=== PATIENT | female | born 1975 | race Caucasian/White ===

== ENCOUNTER → 2017-05-10 | Outpatient (CLI) | payer BC ==
[~2017-05-10] MED LIST: ALPR.25 PO; BUPR150ER PO; VALA500 PO
== END | disposition home or self-care (01) ==
LOC: LAB EV 12:57
DX: N39.0 Urinary tract infection, site not specified (principal)
CPT/HCPCS: 87086

== ENCOUNTER → 2018-01-03 | Outpatient (CLI) | payer BC | END | disposition home or self-care (01) | LOC: LAB EV 07:45 → EDSTATUS 12-19 15:40 → LAB FUT 12-19 15:40 | DX: R10.84 Generalized abdominal pain (principal); R10.30 Lower abdominal pain, unspecified | CPT/HCPCS: 87338 ==

== ENCOUNTER 2019-12-05 06:11 | Day surgery (SDC) | payer BC ==
[~2019-12-05] VITALS: Ht 175.3 cm; Wt 100.9 kg
[~2019-12-05 06:11] MED LIST changes: +Abilify2 MG PO; +Ativan1 MG PO; +CENTRUM SILVER1 EAC2 PO; +DOCU100 PO; +ESCI10 PO; +Frova2.5 MG PO; +GABA100 PO; +HYOS.125 PO; +IBUP800 PO; +LEVONOR-ETH ES1 EAC5 PO; +METR500 PO; +MOME.1TO TOP; +PROP80ER PO; +TRIA15CR3 TOP
--- NOTE | 2019-12-05 08:40 | NUR ---
"DAY SURGERY RN | PATIENT TOLERATING PO FLUIDS."
--- NOTE | 2019-12-05 08:50 | NUR ---
"DAY SURGERY RN | REPORT TO EMEKA MILLER PATIENT TOLERATING PO FLUIDS AND FOOD. DENIES PAIN AND NAUSEA. SITE C/D/I."
--- NOTE | 2019-12-05 09:46 | NUR ---
AARON DRAIN TEACHING DONE, VERBALIZED UNDERSTANDING. PT INSTRUCTIONS GIVEN. DRAINED 20CC RED FLUID, RECORDED ON PT RECORD. NEW RX FROM DR. PARKS FOR PAIN MEDS, GIVEN TO PT. DENIES PAIN AT THIS TIME. VSS. AARON REINFORCED WITH TAPE, SUPPLIES GIVEN FOR HOME CARE. Discharge instructions reviewed with patient. Patient verbalizes understanding. Copy given to patient to take home. Discharged via wheelchair to private car for ride home.
== END 2019-12-05 23:23 | disposition home or self-care (01) ==
LOC: ORSCMMR 06:11 → ORD 07:30 → ORSCMMR 07:30
PROVIDERS: Surgery
PROC: 0JBD0ZZ Excision of Right Upper Arm Subcutaneous Tissue and Fascia, Open Approach (ICD-10-PCS; principal; 2019-12-05 07:30)
DX: D17.39 Benign lipomatous neoplasm of skin and subcutaneous tissue of other sites (principal); F41.8 Other specified anxiety disorders; N18.3 Chronic kidney disease, stage 3 (moderate); E66.9 Obesity, unspecified; Z68.33 Body mass index [BMI] 33.0-33.9, adult; Z79.899 Other long term (current) drug therapy
CPT/HCPCS: 88305; J0690; J1100; J2250; J2405; J2704; J3010; J7120

== ENCOUNTER → 2020-02-11 | Outpatient (CLI) | payer BC ==
[~2020-02-11] MED LIST changes: +ABILIFY MYCITE5 M1 PO; +ACET325 PO; +ACET500 PO; +AMOCLA500 PO; +BENMENLOZ PO; +BUPROPION HCL200 M1 PO; +ESCI20 PO; +ONDA4ODT MM; +PROC5 PO; +Potassium Chlo20 ME1
== END | disposition home or self-care (01) ==
LOC: LAB SHORT 11:28 → LAB EV 11:28
DX: N39.0 Urinary tract infection, site not specified (principal)
CPT/HCPCS: 87077; 87086; 87186

== ENCOUNTER 2020-02-29 17:39 | Inpatient (IN) | payer BC ==
[~2020-02-29] VITALS: Ht 175.3 cm; Wt 102.2 kg
[~2020-02-29 17:39] MED LIST changes: -ABILIFY MYCITE5 M1 PO; -ACET325 PO; -ACET500 PO; -AMOCLA500 PO; -BENMENLOZ PO; -BUPROPION HCL200 M1 PO; -ESCI20 PO; -ONDA4ODT MM; -PROC5 PO; -Potassium Chlo20 ME1
[2020-02-29 18:53] LABS: Hematocrit 31.3 % (33.0-51.0); Hemoglobin 10.8 g/dL (11.5-16.0); Mean Corpuscular HGB Conc 34.5 g/dL (31.5-36.5); Mean Corpuscular Volume 90 fL (80-100); Mean Platelet Volume 10.2 fL (9.1-12.4); RDW Coefficient Variation 10.9 % (11.7-14.2); RDW Standard Deviation 35.8 fL (35.1-46.3); Red Blood Cell Count 3.48 M/mm3 (3.80-5.20)
[2020-02-29 19:07] LABS: International Normalized Ratio 0.96; Prothrombin Time Results 10.3 Sec (9.7-11.5)
[2020-02-29 19:13] LABS: Alanine Aminotransfer (ALT/SGP 247 U/L (12-78); Albumin, Blood 3.3 g/dL (3.4-5.0); Albumin/Globulin Ratio 0.7 (0.8-1.8); Alk Phos 84 U/L (50-136); Anion Gap 5 mmol/L (6-16); Aspartate Aminotrans (AST/SGOT 38 U/L (12-37); Bilirubin, Total 1.4 mg/dL (0.1-1.0); Blood Urea Nitrogen 13 mg/dL (8-24); Bun/Creatinine Ratio 12.6 (12.0-20.0); CO2, Blood 26 mmol/L (21-32); Chloride, Blood 101 mmol/L (98-108); Creatinine, Blood 1.03 mg/dL (0.40-1.00); Globulin, Blood 4.5 g/dL (2.2-4.0); Glomerular Filtration Rate >60 (60-); Glucose, Blood 120 mg/dL (70-99); Sodium, Blood 132 mmol/L (136-145); Total Protein, Blood 7.8 g/dL (6.4-8.2)
[2020-02-29 19:14] LABS: Platelet Count 39 K/mm3 (150-400); White Blood Cell Count 0.23 K/mm3 (4.00-11.30)
[2020-02-29] MEDS ORDERED: ESCI20 PO ×2 (19:31)
[2020-02-29] MEDS ORDERED: ABILIFY MYCITE5 M1 PO ×2 (19:31)
[2020-02-29] MEDS ORDERED: Potassium Chlo20 ME1 ×2 (19:33)
[2020-02-29] MEDS ORDERED: PROC5 PO ×2 (19:34)
[2020-02-29] MEDS ORDERED: BUPROPION HCL200 M1 PO ×2 (19:35)
[2020-02-29 19:41] LABS: BASOPHILS PERCENT MAN 0 % (0-2); EOSINOPHILS ABSOLUTE MAN 0.01 K/mm3 (0.00-0.68); EOSINOPHILS PERCENT MAN 8 % (0-6); LYMPHOCYTES % ATYPICAL MANUAL 4 % (0-0); LYMPHOCYTES ABSOLUTE MAN 0.18 K/mm3 (0.84-5.20); LYMPHOCYTES PERCENT MAN 76 % (21-46); MONOCYTES ABSOLUTE MAN 0.02 K/mm3 (0.16-1.47); MONOCYTES PERCENT MAN 12 % (4-13); TOTAL CELLS COUNTED 25
[2020-02-29 22:33] LABS: Source, Urine Clean Catch
[2020-02-29 22:36] LABS: Bilirubin, Urine Neg (Neg); Blood, Urine 2+ (Neg); Glucose Qualitative, Urine Neg (Neg); Ketones, Urine 1+ (Neg); Leukocyte Esterase, Urine Neg (Neg); Nitrite, Urine Neg (Neg); Protein, Urine 1+ (Neg); Specific Gravity, Urine 1.015 (1.003-1.022); Urobilinogen, Urine 1+ (Normal)
[2020-02-29 22:37] LABS: Appearance, Urine Clear (Clear); Color, Urine Yellow (P-Yellow)
[2020-02-29 22:53] LABS: Bacteria Rare /hpf; Mucus Light (0-Heavy); Red Blood Cells, Urine 0-2 /hpf (0-2); Squamous Epithelial Cells Few /hpf (Few); White Blood Cells, Urine Not Seen /hpf (0-5)
[2020-02-29 23:43] LABS: Adenovirus Not Detected (NOT DETECT); Bordetella pertussis Not Detected (NOT DETECT); Chlamydophila pneumoniae Not Detected (NOT DETECT); Coronavirus 229E Not Detected (NOT DETECT); Coronavirus HKU1 Not Detected (NOT DETECT); Coronavirus NL63 Not Detected (NOT DETECT); Coronavirus OC43 Not Detected (NOT DETECT); Human Metapneumovirus Not Detected (NOT DETECT); Human Rhinovirus/Enterovirus Not Detected (NOT DETECT); Influenza A/2009-H1 Not Detected (NOT DETECT); Influenza A/H1 Not Detected (NOT DETECT); Influenza A/H3 Not Detected (NOT DETECT); Influenza B Not Detected (NOT DETECT); Mycoplasma pneumoniae Not Detected (NOT DETECT); Parainfluenza Virus 1 Not Detected (NOT DETECT); Parainfluenza Virus 2 Not Detected (NOT DETECT); Parainfluenza Virus 3 Not Detected (NOT DETECT); Parainfluenza Virus 4 Not Detected (NOT DETECT); Respiratory Syncytial Virus Not Detected (NOT DETECT); SARS-Cov-2 (COVID-19), BioFire Not Detected (NOT DETECT)
[2020-03-01 05:57] LABS: BASOPHILS PERCENT AUTO 0 % (0-2); EOSINOPHILS ABSOLUTE AUTO 0.01 K/mm3 (0.00-0.68); EOSINOPHILS PERCENT AUTO 5 % (0-6); Hematocrit 25.4 % (33.0-51.0); IMMATURE GRAN PERCENT AUTO 0 % (0-1); LYMPHOCYTES ABSOLUTE AUTO 0.18 K/mm3 (0.84-5.20); LYMPHOCYTES PERCENT AUTO 82 % (21-46); MONOCYTES ABSOLUTE AUTO 0.02 K/mm3 (0.16-1.47); MONOCYTES PERCENT AUTO 9 % (4-13); Mean Corpuscular HGB 31.7 pg (26.0-34.0); Mean Corpuscular HGB Conc 35.4 g/dL (31.5-36.5); Mean Corpuscular Volume 89 fL (80-100); Mean Platelet Volume 9.7 fL (9.1-12.4); NEUTROPHILS ABSOLUTE AUTO 0.01 K/mm3 (1.96-9.15); NEUTROPHILS PERCENT AUTO 5 % (41-73); RDW Standard Deviation 36.3 fL (35.1-46.3); Red Blood Cell Count 2.84 M/mm3 (3.80-5.20)
[2020-03-01 05:58] LABS: Platelet Count 25 K/mm3 (150-400); White Blood Cell Count 0.22 K/mm3 (4.00-11.30)
[2020-03-01 06:16] LABS: Alanine Aminotransfer (ALT/SGP 170 U/L (12-78); Albumin, Blood 2.6 g/dL (3.4-5.0); Albumin/Globulin Ratio 0.7 (0.8-1.8); Alk Phos 73 U/L (50-136); Anion Gap 5 mmol/L (6-16); Aspartate Aminotrans (AST/SGOT 21 U/L (12-37); Bilirubin, Total 0.9 mg/dL (0.1-1.0); Blood Urea Nitrogen 9 mg/dL (8-24); Bun/Creatinine Ratio 10.9 (12.0-20.0); CO2, Blood 25 mmol/L (21-32); Calcium, Blood 8.3 mg/dL (8.5-10.1); Chloride, Blood 108 mmol/L (98-108); Creatinine, Blood 0.83 mg/dL (0.40-1.00); Globulin, Blood 3.9 g/dL (2.2-4.0); Glomerular Filtration Rate >60 (60-); Glucose, Blood 117 mg/dL (70-99); Potassium, Blood 3.5 mmol/L (3.5-5.5); Sodium, Blood 138 mmol/L (136-145); Total Protein, Blood 6.5 g/dL (6.4-8.2)
[2020-03-01 06:39] LABS: BASOPHILS PERCENT MAN 4 % (0-2); EOSINOPHILS PERCENT MAN 4 % (0-6); LYMPHOCYTES ABSOLUTE MAN 0.16 K/mm3 (0.84-5.20); LYMPHOCYTES PERCENT MAN 76 % (21-46); MONOCYTES ABSOLUTE MAN 0.03 K/mm3 (0.16-1.47); MONOCYTES PERCENT MAN 16 % (4-13); TOTAL CELLS COUNTED 25
--- NOTE | 2020-03-01 12:31 | NUR ---
Supportive Visit this afternoon. Pt resting in bed upon arrival. Pt reports mild discomfort from sore throat. Pt denies dyspnea and nausea at this time. Dr Perrin in to examine Pt. Discussed Pt's sore throat with Dr Perrin. Continued conversation after Dr Perrin's examination. Encouraged Pt discuss concerns with Pt reporting no concerns at this time. Pt reports adequate support at home during her treatments. Placed order for Cepacol Lozanges per V/O from Dr Perrin. Spoke with Bedside PAUL Webb and discussed case. Palliative Care will remain available if called upon.
--- NOTE | 2020-03-01 16:07 | NUR ---
SHIFT SUMMARY NEW ER ADMIT THIS SHIFT WITH NEUTROPENIA R/T CHEMOTHERAPY D/T HX OF LIPOSARCOMA. PT ALERT AND ORIENTED AND PLEASANT. PT DENIES PAIN TO HER RIGHT SHOULDER WHERE HER MASS IS. PT WAS FEBRILE UPON ARRIAL TO UNIT. TYLENOL GIVEN PER ORDERS AND PT HAS BEEN AFEBRILE SINCE. IV ABX PER ORDERS. PT REPORTS FEELING WEAK, BUT OTHERWISE IS INDEP TO BRP AND VOIDING WITHOUT DIFFICULTY. CHADWICK REG DIET. PT WITH COMPLAINT OF A SORE THROAT--LOZENGES ORDERED AND ARE EFFECTIVE PER PT. PT RESTING COMFORTABLY THIS AFTERNOON. PT USES CALL LIGHT APPROPRIATELY.
[2020-03-02 00:40] LABS: Vancomycin, Trough 13.5 ug/mL (5.0-10.0)
--- NOTE | 2020-03-02 05:44 | NUR ---
SHIFT SUMMARY: NASEEM IS A&OX4. IV TO R AC PATENT. VSS, NO ACUTE EVENTS OVERNIGHT. HER FEVER HAS TRENDED DOWN. SHE IS INDEPENDENT IN THE ROOM. SHE IS TOLERATING PO INTAKE, BUT STATES THAT THE SIDES OF HER TONGUE AND INSIDES OF HER CHEEKS ADJACENT TO HER UPPER TEETH ARE SORE. SHE DID TRY RINSING WITH SALT WATER AND STATED SHE FELT IMPROVEMENT. SHE IS URINATING WITHOUT DIFFICULTY. SHE HAS COMPLAINED OF CHILLS AND FEELING QUITE COLD OFF AND ON THROUGHOUT THE NIGHT. SHE IS LYING IN BED WITH HER CALL LIGHT IN REACH. WILL REPORT TO DAY SHIFT RN.
[2020-03-02 10:23] LABS: Hematocrit 24.1 % (33.0-51.0); Hemoglobin 8.5 g/dL (11.5-16.0); Mean Corpuscular HGB 31.6 pg (26.0-34.0); Mean Corpuscular HGB Conc 35.3 g/dL (31.5-36.5); Mean Corpuscular Volume 90 fL (80-100); RDW Coefficient Variation 10.8 % (11.7-14.2); RDW Standard Deviation 35.2 fL (35.1-46.3); Red Blood Cell Count 2.69 M/mm3 (3.80-5.20)
[2020-03-02 10:33] LABS: Platelet Count 38 K/mm3 (150-400); White Blood Cell Count 0.32 K/mm3 (4.00-11.30)
[2020-03-02 10:46] LABS: BASOPHILS PERCENT MAN 0 % (0-2); EOSINOPHILS PERCENT MAN 0 % (0-6); LYMPHOCYTES ABSOLUTE MAN 0.21 K/mm3 (0.84-5.20); LYMPHOCYTES PERCENT MAN 68 % (21-46); MONOCYTES ABSOLUTE MAN 0.02 K/mm3 (0.16-1.47); MONOCYTES PERCENT MAN 8 % (4-13); NEUTROPHILS ABSOLUTE MAN 0.07 K/mm3 (1.96-9.15); SEG NEUTROPHILS PERCENT MAN 24 % (41-73); TOTAL CELLS COUNTED 25
--- NOTE | 2020-03-02 16:02 | NUR ---
SHIFT SUMMARY NO ACUTE CHANGES THIS SHIFT. PT AFEBRILE. LABS TRENDING IN THE APPROPRIATE DIRECTION, BUT STILL CRITICALLY LOW. PT DENIES PAIN. REMAINS INDEP IN THE ROOM. HAS SOME APPETITE. IV ABX PER ORDERS. RN TOMORROW TO CONSULT [facility] ONCOLOGIST FOR FURTHER TREATMENT PLAN. PT USES CALL LIGHT APPROPRIATELY.
--- NOTE | 2020-03-03 06:22 | NUR ---
SHIFT SUMMARY: NASEEM IS A&OX4. VSS, NO ACUTE EVENTS OVERNIGHT, AFEBRILE. SHE IS INDEPENDENT IN THE ROOM, USES HER CALL LIGHT APPROPRIATELY. IV TO L FOREARM PATENT. SHE IS TAKING IN SMALL AMOUNTS PO, BUT TOLERATING IT WELL. SHE IS URINATING WITHOUT DIFFICULTY. SHE HAS COMPLAINED OF A HEADACHE FOR WHICH NEITHER THE OXYCODONE OR TRAMADOL WERE EFFECTIVE. HOWEVER, SHE DID REPORT BOTH MEDICATIONS EFFECTIVE FOR THE MOUTH AND THROAT PAIN. SHE IS LYING IN BED WITH HER CALL LIGHT IN REACH. WILL REPORT TO DAY SHIFT RN.
[2020-03-03 08:32] LABS: Hemoglobin 8.2 g/dL (11.5-16.0); Mean Corpuscular HGB 30.6 pg (26.0-34.0); Mean Corpuscular HGB Conc 34.2 g/dL (31.5-36.5); Mean Corpuscular Volume 90 fL (80-100); Mean Platelet Volume 10.4 fL (9.1-12.4); Platelet Count 69 K/mm3 (150-400); RDW Coefficient Variation 10.8 % (11.7-14.2); RDW Standard Deviation 35.5 fL (35.1-46.3); Red Blood Cell Count 2.68 M/mm3 (3.80-5.20)
[2020-03-03 08:41] LABS: White Blood Cell Count 0.75 K/mm3 (4.00-11.30)
[2020-03-03 08:50] LABS: Vancomycin, Trough 20.5 ug/mL (5.0-10.0)
[2020-03-03 08:59] LABS: BAND PERCENT MAN 4 % (0-8); BASOPHILS PERCENT MAN 0 % (0-2); EOSINOPHILS PERCENT MAN 0 % (0-6); LYMPHOCYTES ABSOLUTE MAN 0.33 K/mm3 (0.84-5.20); LYMPHOCYTES PERCENT MAN 44 % (21-46); MONOCYTES ABSOLUTE MAN 0.12 K/mm3 (0.16-1.47); MONOCYTES PERCENT MAN 16 % (4-13); SEG NEUTROPHILS PERCENT MAN 36 % (41-73); TOTAL CELLS COUNTED 25
--- NOTE | 2020-03-03 15:40 | NUR ---
Clinical Visit: Pt is alert, oriented, sitting up reading a book in bed. She reports mouth sores and mouth pain related to chemo treatments. She has no other concerns. Reviewed lidocaine mouth wash. She is willing to try it to see if it helps her feel better. Reviewed directions for rinsing and prior to meals. She thanks me for the visit. Updated nurse.
--- NOTE | 2020-03-03 16:43 | NUR ---
Spiritual care intial note: Danuta tells me she is not too concerned about her cancer treatments or prognosis. 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 She would benefit from palliative care for symptom management and guidence going forward. Danuta has a 24 yo dtr and 2 teen-age children. She is . She has strong support from her sister who is a well-respected RN here. I provided prayer and assurance of God's care/attention. I will remain available.
--- NOTE | 2020-03-03 17:41 | NUR ---
SUMMARY: NO ACUTE CHANGE TODAY, VSS, A/O. AFIBRILE TODAY. PT RECEIVING IV ABX. WBC COUNT IMPROVING. PT HAS DENIED NEED FOR PAIN MEDICATION STATING NO HEADACHE.. CALLED PT'S ONCOLOGIST AT [facility], THE ACCOUNTING MANAGER REFERED ME TO A DOCTOR PAGING LINE FOR PHYSICAIN TO PHYSICIAN COMMUNICATION ONLY. GAVE THIS PAGING LINE NUMBER TO DR. SHANNON, WHO TOLD THIS RN TO CONSULT DR. CISNEROS (ONCOLOGIST) INSTEAD...SEE NEW CONSULT IN ORDERS. NO ACUTE SAFETY CONCERNS. CONTINUING TO MONITOR PT STATUS, WILL REPORT TO NOC RN.
--- NOTE | 2020-03-04 05:18 | NUR ---
PT REMAINED AFEBRILE T/O NIGHT, OTHER VSS. PT REP MIGRAINE RELIEVED AFTER SECOND FIORINAL. PT DENEID OTHER COMPLAINTS OF PAIN. PT REP APPETITE REMAINS DECREASED, DID CHADWICK SIPS WATER/JUICE AND PUDDING, NO C/O N/V. PT VOIDING URINE W/O DIFFICULY. PT AMB INDEP IN ROOM, DENIES DIZZINESS WHEN UP. PT REP FEELING EMOTIONAL R/T SUDDEN LOSS F HAIR. SUPPORT PROVIDED PRN. SISTER IN ROOM FOR VISIT, SPIRITS APPEARED IMPROVED AFTER VISIT. IVF ABX CONT PER ORDERS. AWAITING AM LAB RESULTS.
[2020-03-04 06:17] LABS: Hematocrit 25.2 % (33.0-51.0); Hemoglobin 8.8 g/dL (11.5-16.0); Mean Corpuscular HGB 31.3 pg (26.0-34.0); Mean Corpuscular HGB Conc 34.9 g/dL (31.5-36.5); Mean Corpuscular Volume 90 fL (80-100); Mean Platelet Volume 10.1 fL (9.1-12.4); Platelet Count 102 K/mm3 (150-400); RDW Coefficient Variation 10.8 % (11.7-14.2); RDW Standard Deviation 35.9 fL (35.1-46.3); Red Blood Cell Count 2.81 M/mm3 (3.80-5.20); White Blood Cell Count 1.89 K/mm3 (4.00-11.30)
[2020-03-04 06:40] LABS: BAND PERCENT MAN 8 % (0-8); BASOPHILS PERCENT MAN 0 % (0-2); EOSINOPHILS ABSOLUTE MAN 0.03 K/mm3 (0.00-0.68); EOSINOPHILS PERCENT MAN 2 % (0-6); LYMPHOCYTES ABSOLUTE MAN 0.62 K/mm3 (0.84-5.20); LYMPHOCYTES PERCENT MAN 33 % (21-46); MONOCYTES ABSOLUTE MAN 0.13 K/mm3 (0.16-1.47); MONOCYTES PERCENT MAN 7 % (4-13); NEUTROPHILS ABSOLUTE MAN 1.09 K/mm3 (1.96-9.15); SEG NEUTROPHILS PERCENT MAN 50 % (41-73); TOTAL CELLS COUNTED 100
[2020-03-04 06:53] LABS: Alanine Aminotransfer (ALT/SGP 67 U/L (12-78); Albumin, Blood 2.6 g/dL (3.4-5.0); Albumin/Globulin Ratio 0.6 (0.8-1.8); Alk Phos 67 U/L (50-136); Anion Gap 4 mmol/L (6-16); Aspartate Aminotrans (AST/SGOT 10 U/L (12-37); Bilirubin, Total 0.6 mg/dL (0.1-1.0); Blood Urea Nitrogen 7 mg/dL (8-24); Bun/Creatinine Ratio 8.8 (12.0-20.0); CO2, Blood 28 mmol/L (21-32); Calcium, Blood 8.6 mg/dL (8.5-10.1); Chloride, Blood 109 mmol/L (98-108); Creatinine, Blood 0.79 mg/dL (0.40-1.00); Globulin, Blood 4.1 g/dL (2.2-4.0); Glomerular Filtration Rate >60 (60-); Glucose, Blood 85 mg/dL (70-99); Potassium, Blood 3.7 mmol/L (3.5-5.5); Sodium, Blood 141 mmol/L (136-145); Total Protein, Blood 6.7 g/dL (6.4-8.2)
--- NOTE | 2020-03-04 09:28 | NUR ---
PT ABLE TO DISCHARGE TODAY. DR. MENDEZ'S OFFICE CALLED AT THIS TIME TO CANCEL ONCOLOGY CONSULT.
[2020-03-04 09:42] LABS: Vancomycin, Trough 20.3 ug/mL (5.0-10.0)
[2020-03-04] MEDS ORDERED: ACET500 PO ×2 (10:03)
[2020-03-04] MEDS ORDERED: BENMENLOZ PO ×2 (10:09)
[2020-03-04] MEDS ORDERED: ONDA4ODT MM ×2 (10:11)
[2020-03-04] MEDS ORDERED: AMOCLA500 PO ×2 (10:11)
[2020-03-04] MEDS ORDERED: ACET325 PO ×2 (10:16)
--- NOTE | 2020-03-04 11:02 | NUR ---
DISCHARGE: CHART RELEASE PAPERWORK SENT TO MEDICAL [facility]DS, RECORD OF VIST TO BE SENT TO [facility]. NEW MEDICATIONS FAXED TO [facility], VERIFIED SENT AT ABOUT 1050. DISCHARGE PACKET PRINTED AND PT EDUCATED. PT GIVEN 2 SCRIPTS AND TOLD TO GO TO A LAB DRAW SITE FOR CBC BEFORE SEEING HER PRIMARY MD. PT LEFT UNIT ON FOOT WITH DAUGHTER AT ABOUT 1100.
== END 2020-03-04 11:05 | disposition home or self-care (01) | DRG 809 ==
LOC: ER 17:39 → SURS 23:28 → ERHOLD 23:28 → SURS 03-01 10:28
PROVIDERS: Family Medicine; Nurse Practitioner Acute Care; Physician Assistant; ADMIT Family Medicine
DX: D70.9 Neutropenia, unspecified (principal); C49.11 Malignant neoplasm of connective and soft tissue of right upper limb, including shoulder; E80.4 Gilbert syndrome; I73.00 Raynaud's syndrome without gangrene; Z98.82 Breast implant status; Z20.828 Contact with and (suspected) exposure to other viral communicable diseases; D69.59 Other secondary thrombocytopenia; A60.00 Herpesviral infection of urogenital system, unspecified; E66.9 Obesity, unspecified; Z68.32 Body mass index [BMI] 32.0-32.9, adult; G43.909 Migraine, unspecified, not intractable, without status migrainosus
CPT/HCPCS: 0202U; 36415; 71045; 80053; 80202; 81001; 83605; 85007; 85025; 85027; 85610; 85730; 86850; 86900; 86901; 87040; 87081; 93005; 93010; 96361; 96365; 99285-25; A9270; J0692; J1447; J3370; J7030; J7050

== ENCOUNTER 2020-03-07 14:43 | Emergency (ER) | payer BC ==
[~2020-03-07] VITALS: Ht 175.3 cm; Wt 99.8 kg
[~2020-03-07 14:43] MED LIST changes: +ABILIFY MYCITE5 M1 PO; +ACET325 PO; +ACET500 PO; +AMOCLA500 PO; +BENMENLOZ PO; +BUPROPION HCL200 M1 PO; +ESCI20 PO; +ONDA4ODT MM; +PROC5 PO; +Potassium Chlo20 ME1
[2020-03-07 15:40] LABS: Hematocrit 25.9 % (33.0-51.0); Mean Corpuscular HGB 31.7 pg (26.0-34.0); Mean Corpuscular HGB Conc 34.7 g/dL (31.5-36.5); Mean Corpuscular Volume 91 fL (80-100); Mean Platelet Volume 8.9 fL (9.1-12.4); Platelet Count 258 K/mm3 (150-400); RDW Coefficient Variation 10.8 % (11.7-14.2); Red Blood Cell Count 2.84 M/mm3 (3.80-5.20); White Blood Cell Count 8.81 K/mm3 (4.00-11.30)
[2020-03-07 15:56] LABS: International Normalized Ratio 1.01; Prothrombin Time Results 10.8 Sec (9.7-11.5)
[2020-03-07 16:02] LABS: Alanine Aminotransfer (ALT/SGP 102 U/L (12-78); Albumin, Blood 2.9 g/dL (3.4-5.0); Albumin/Globulin Ratio 0.6 (0.8-1.8); Alk Phos 103 U/L (50-136); Anion Gap 11 mmol/L (6-16); Aspartate Aminotrans (AST/SGOT 43 U/L (12-37); Bilirubin, Total 0.5 mg/dL (0.1-1.0); Blood Urea Nitrogen 8 mg/dL (8-24); CO2, Blood 23 mmol/L (21-32); Calcium, Blood 9.1 mg/dL (8.5-10.1); Chloride, Blood 103 mmol/L (98-108); Creatinine, Blood 0.89 mg/dL (0.40-1.00); Globulin, Blood 4.5 g/dL (2.2-4.0); Glomerular Filtration Rate >60 (60-); Glucose, Blood 112 mg/dL (70-99); Potassium, Blood 4.3 mmol/L (3.5-5.5); Sodium, Blood 137 mmol/L (136-145); Total Protein, Blood 7.4 g/dL (6.4-8.2)
[2020-03-07 16:13] LABS: BAND PERCENT MAN 3 % (0-8); BASOPHILS PERCENT MAN 0 % (0-2); EOSINOPHILS PERCENT MAN 0 % (0-6); LYMPHOCYTES ABSOLUTE MAN 0.61 K/mm3 (0.84-5.20); LYMPHOCYTES PERCENT MAN 7 % (21-46); METAMYELOCYTE ABSOLUTE MAN 0.08 K/mm3 (0.00-0.00); METAMYELOCYTE PERCENT MAN 1 % (0-0); MONOCYTES ABSOLUTE MAN 0.44 K/mm3 (0.16-1.47); MONOCYTES PERCENT MAN 5 % (4-13); MYELOCYTE ABSOLUTE MAN 0.17 K/mm3 (0.00-0.00); MYELOCYTE PERCENT MAN 2 % (0-0); NEUTROPHILS ABSOLUTE MAN 7.48 K/mm3 (1.96-9.15); SEG NEUTROPHILS PERCENT MAN 82 % (41-73); TOTAL CELLS COUNTED 100
[2020-03-07 19:48] LABS: Source, Urine Clean Catch
[2020-03-07 19:52] LABS: Blood, Urine 1+ (Neg); Glucose Qualitative, Urine Neg (Neg); Ketones, Urine 2+ (Neg); Leukocyte Esterase, Urine 1+ (Neg); Nitrite, Urine Neg (Neg); Protein, Urine 2+ (Neg); Specific Gravity, Urine 1.025 (1.003-1.022); Urobilinogen, Urine 3+ (Normal)
[2020-03-07 19:57] LABS: Appearance, Urine Clear (Clear); Bilirubin, Urine 1+ (Neg); Color, Urine Amber (P-Yellow)
[2020-03-07 19:58] LABS: Bacteria Mod /hpf; Mucus Mod (0-Heavy); Red Blood Cells, Urine 0-2 /hpf (0-2); Squamous Epithelial Cells Mod /hpf (Few)
[2020-03-07 20:34] LABS: Influenza A, PCR Negative (NEGATIVE); Influenza B, PCR Negative (NEGATIVE); Resp Syncytial Virus, PCR Negative (NEGATIVE); SARS-Cov-2 (COVID-19) PCR, MMC Negative (NEGATIVE)
[2020-03-07] MEDS ORDERED: Ultram50 MG PO (21:33)
== END 2020-03-07 22:10 | disposition home or self-care (01) ==
LOC: ER 14:43
PROVIDERS: Emergency Medicine; Physician Assistant
DX: R50.9 Fever, unspecified (principal); C76.41 Malignant neoplasm of right upper limb; D84.821 Immunodeficiency due to drugs; T45.1X5A Adverse effect of antineoplastic and immunosuppressive drugs, initial encounter; Z20.828 Contact with and (suspected) exposure to other viral communicable diseases; Z88.3 Allergy status to other anti-infective agents; Z79.899 Other long term (current) drug therapy
CPT/HCPCS: 0241U; 36415; 71045; 80053; 81001; 83605; 85025; 85610; 85730; 87086; 93005; 93010; 99284-25; A9270; J7120

== ENCOUNTER 2020-03-24 08:59 | Emergency (ER) | payer BC ==
[~2020-03-24] VITALS: Ht 175.3 cm; Wt 97.5 kg
[~2020-03-24 08:59] MED LIST changes: +Ultram50 MG PO
[2020-03-24 09:56] LABS: BASOPHILS ABSOLUTE AUTO 0.02 K/mm3 (0.00-0.23); BASOPHILS PERCENT AUTO 0 % (0-2); EOSINOPHILS PERCENT AUTO 0 % (0-6); Hematocrit 22.7 % (33.0-51.0); Hemoglobin 7.2 g/dL (11.5-16.0); IMMATURE GRAN ABSOLUTE AUTO 0.24 K/mm3 (0.00-0.10); IMMATURE GRAN PERCENT AUTO 3 % (0-1); LYMPHOCYTES ABSOLUTE AUTO 0.44 K/mm3 (0.84-5.20); LYMPHOCYTES PERCENT AUTO 5 % (21-46); MONOCYTES ABSOLUTE AUTO 0.78 K/mm3 (0.16-1.47); MONOCYTES PERCENT AUTO 10 % (4-13); Mean Corpuscular HGB 31.7 pg (26.0-34.0); Mean Corpuscular HGB Conc 31.7 g/dL (31.5-36.5); Mean Corpuscular Volume 100 fL (80-100); Mean Platelet Volume 9.1 fL (9.1-12.4); NEUTROPHILS ABSOLUTE AUTO 6.62 K/mm3 (1.96-9.15); NEUTROPHILS PERCENT AUTO 82 % (41-73); Platelet Count 160 K/mm3 (150-400); RDW Coefficient Variation 17.1 % (11.7-14.2); RDW Standard Deviation 45.3 fL (35.1-46.3); Red Blood Cell Count 2.27 M/mm3 (3.80-5.20)
[2020-03-24 10:17] LABS: Alanine Aminotransfer (ALT/SGP 33 U/L (12-78); Albumin, Blood 2.9 g/dL (3.4-5.0); Albumin/Globulin Ratio 0.7 (0.8-1.8); Alk Phos 109 U/L (50-136); Anion Gap 5 mmol/L (6-16); Aspartate Aminotrans (AST/SGOT 7 U/L (12-37); Bilirubin, Total 0.5 mg/dL (0.1-1.0); Blood Urea Nitrogen 8 mg/dL (8-24); Bun/Creatinine Ratio 9.1 (12.0-20.0); CO2, Blood 28 mmol/L (21-32); Calcium, Blood 8.7 mg/dL (8.5-10.1); Chloride, Blood 106 mmol/L (98-108); Creatinine, Blood 0.88 mg/dL (0.40-1.00); Globulin, Blood 4.4 g/dL (2.2-4.0); Glomerular Filtration Rate >60 (60-); Glucose, Blood 97 mg/dL (70-99); Potassium, Blood 3.7 mmol/L (3.5-5.5); Sodium, Blood 139 mmol/L (136-145); Total Protein, Blood 7.3 g/dL (6.4-8.2)
[2020-03-24] MEDS ORDERED: CEPH500 PO (12:14)
[2020-03-24] MEDS ORDERED: SULTRIDS PO (12:14)
== END 2020-03-24 12:44 | disposition home or self-care (01) ==
LOC: ER 08:59
PROVIDERS: Emergency Medicine
DX: L03.113 Cellulitis of right upper limb (principal); Z88.8 Allergy status to other drugs, medicaments and biological substances; Z79.899 Other long term (current) drug therapy; Z85.831 Personal history of malignant neoplasm of soft tissue
CPT/HCPCS: 36415; 76882; 80053; 85025; 99284-25

== ENCOUNTER 2020-04-20 13:18 | Inpatient (IN) | payer BC ==
[~2020-04-20] VITALS: Ht 175.3 cm; Wt 93.4 kg
[~2020-04-20 13:18] MED LIST changes: +CEPH500 PO; +SULTRIDS PO
[2020-04-20 15:54] LABS: Hemoglobin 6.5 g/dL (11.5-16.0); Mean Corpuscular HGB Conc 32.5 g/dL (31.5-36.5); Mean Corpuscular Volume 102 fL (80-100); RDW Coefficient Variation 13.4 % (11.7-14.2); RDW Standard Deviation 49.8 fL (35.1-46.3); Red Blood Cell Count 1.97 M/mm3 (3.80-5.20)
[2020-04-20 15:55] LABS: Mean Platelet Volume 13.4 fL (9.1-12.4)
[2020-04-20 15:56] LABS: Platelet Count 10 K/mm3 (150-400); White Blood Cell Count 0.31 K/mm3 (4.00-11.30)
[2020-04-20 16:46] LABS: Source, Urine Clean Catch
[2020-04-20 16:58] LABS: Appearance, Urine Clear (Clear); Bilirubin, Urine Neg (Neg); Blood, Urine 3+ (Neg); Color, Urine Yellow (P-Yellow); Glucose Qualitative, Urine 2+ (Neg); Ketones, Urine Neg (Neg); Leukocyte Esterase, Urine 1+ (Neg); Nitrite, Urine Neg (Neg); Protein, Urine 2+ (Neg); Urobilinogen, Urine NORM (Normal)
[2020-04-20 17:10] LABS: Bacteria Rare /hpf; Red Blood Cells, Urine 0-2 /hpf (0-2); Squamous Epithelial Cells Few /hpf (Few)
[2020-04-20 17:34] LABS: BASOPHILS ABSOLUTE MAN 0.01 K/mm3 (0.00-0.23); BASOPHILS PERCENT MAN 4 % (0-2); EOSINOPHILS ABSOLUTE MAN 0.02 K/mm3 (0.00-0.68); EOSINOPHILS PERCENT MAN 8 % (0-6); LYMPHOCYTES ABSOLUTE MAN 0.19 K/mm3 (0.84-5.20); LYMPHOCYTES PERCENT MAN 64 % (21-46); METAMYELOCYTE ABSOLUTE MAN 0.01 K/mm3 (0.00-0.00); METAMYELOCYTE PERCENT MAN 4 % (0-0); MONOCYTES PERCENT MAN 0 % (4-13); NEUTROPHILS ABSOLUTE MAN 0.06 K/mm3 (1.96-9.15); SEG NEUTROPHILS PERCENT MAN 20 % (41-73); TOTAL CELLS COUNTED 25
[2020-04-20 17:47] LABS: International Normalized Ratio 0.94; Prothrombin Time Results 10.1 Sec (9.7-11.5)
--- NOTE | 2020-04-20 22:00 | NUR ---
PT ARRIVED TO ROOM FROM ER. PT A/O, VSS. PT DENIES DIZZINESS/CP/SOB. PT REP LAST CHEMO TX 04/08/20. 2UNITS OF PLATELETS GIVEN IN ER; PT DENIES ANY ADVERSE REACTIONS. 2 UNITS REMAIN TO BE GIVEN FOLLOWED BY 1UNIT PRBC. PT C/O HEADACHE, DENIES N/V. PT REP DEC PO INTAKE R/T MOUTH SORES. PT REP CAN SWALLOW W/O DIFFIUTLTY. PT REP HX CONSTIPATION W/DARK STOOLS AND OCC BLEEDING HEMMORRHOIDS. HAT PLACED TO OBTAIN STOOL SAMPLE. PT ORIENTED TO ROOM, PLAN TO NOTIFY MD TO CLARIFY ORDERS.
--- NOTE | 2020-04-20 22:08 | NUR ---
PLATELETS: DISCUSSED PT LABS AND CURRENT PLATELET ORDER OF 4 UNITS W/DR DALAL. PT ALREADY REC 2 UNITS IN ER. PER DR DALAL, HOLD OFF ON TRANSFUSING 2 ADDITIONAL UNITS AND MONITOR LABS (PT RECEIVE 2 UNITS TOTAL, NOT 4). CONFIRMED ORDER TO TRANSFUSE 1 UNIT PRBC.
--- NOTE | 2020-04-21 01:59 | NUR ---
PRBC COMPLETED; PT CHADWICK WELL
[2020-04-21 05:19] LABS: Hematocrit 18.3 % (33.0-51.0); Hemoglobin 6.3 g/dL (11.5-16.0); Mean Corpuscular HGB 32.1 pg (26.0-34.0); Mean Corpuscular HGB Conc 34.4 g/dL (31.5-36.5); Mean Platelet Volume 11.5 fL (9.1-12.4); RDW Coefficient Variation 13.8 % (11.7-14.2); RDW Standard Deviation 46.9 fL (35.1-46.3); Red Blood Cell Count 1.96 M/mm3 (3.80-5.20)
[2020-04-21 05:28] LABS: BASOPHILS ABSOLUTE AUTO 0.01 K/mm3 (0.00-0.23); BASOPHILS PERCENT AUTO 2 % (0-2); EOSINOPHILS ABSOLUTE AUTO 0.02 K/mm3 (0.00-0.68); EOSINOPHILS PERCENT AUTO 5 % (0-6); IMMATURE GRAN ABSOLUTE AUTO 0.01 K/mm3 (0.00-0.10); IMMATURE GRAN PERCENT AUTO 2 % (0-1); LYMPHOCYTES ABSOLUTE AUTO 0.15 K/mm3 (0.84-5.20); LYMPHOCYTES PERCENT AUTO 35 % (21-46); MONOCYTES ABSOLUTE AUTO 0.03 K/mm3 (0.16-1.47); MONOCYTES PERCENT AUTO 7 % (4-13); Mean Corpuscular Volume 93 fL (80-100); NEUTROPHILS ABSOLUTE AUTO 0.21 K/mm3 (1.96-9.15); NEUTROPHILS PERCENT AUTO 49 % (41-73)
[2020-04-21 05:30] LABS: White Blood Cell Count 0.43 K/mm3 (4.00-11.30)
[2020-04-21 05:31] LABS: Platelet Count 35 K/mm3 (150-400)
[2020-04-21 05:41] LABS: Alanine Aminotransfer (ALT/SGP 20 U/L (12-78); Albumin, Blood 2.8 g/dL (3.4-5.0); Albumin/Globulin Ratio 0.7 (0.8-1.8); Alk Phos 64 U/L (50-136); Anion Gap 7 mmol/L (6-16); Aspartate Aminotrans (AST/SGOT 8 U/L (12-37); Bilirubin, Total 1.4 mg/dL (0.1-1.0); Blood Urea Nitrogen 10 mg/dL (8-24); Bun/Creatinine Ratio 13.1 (12.0-20.0); CO2, Blood 24 mmol/L (21-32); Calcium, Blood 8.2 mg/dL (8.5-10.1); Chloride, Blood 107 mmol/L (98-108); Creatinine, Blood 0.76 mg/dL (0.40-1.00); Globulin, Blood 3.8 g/dL (2.2-4.0); Glomerular Filtration Rate >60 (60-); Glucose, Blood 106 mg/dL (70-99); Potassium, Blood 3.7 mmol/L (3.5-5.5); Sodium, Blood 138 mmol/L (136-145); Total Protein, Blood 6.6 g/dL (6.4-8.2)
[2020-04-21 05:51] LABS: BAND PERCENT MAN 100 % (0-8); BASOPHILS PERCENT MAN 0 % (0-2); EOSINOPHILS PERCENT MAN 0 % (0-6); MONOCYTES PERCENT MAN 0 % (4-13); NEUTROPHILS ABSOLUTE MAN 0.43 K/mm3 (1.96-9.15); TOTAL CELLS COUNTED 1
--- NOTE | 2020-04-21 05:58 | NUR ---
CRITICAL LABS: DISCUSSED CRITICAL WBC AND PLATELETS W/DR DALAL. ALSO REVIEWED H&H. NEW ORDER TO TRANSFUSE 1 UNIT PLATELETS, AND 1 UNIT PRBC.
--- NOTE | 2020-04-21 07:34 | NUR ---
Pt consented to student nurse assisting in care on 04/21/20
--- NOTE | 2020-04-21 07:47 | NUR ---
PT NEW ADMIT THIS SHIFT; VSS SINCE ARRIVING TO FLOOR. 1 UNIT PRBC GIVEN, PT CHADWICK WELL. CRITICAL LABS REC THIS AM, PLAN TO GIVE 1 ADDITIONAL UNIT OF PLATELETS AND 1 UNIT OF PRBC THIS AM. PT REP HEADACHE IMPROVED AFTER 1 DOSE OF FENTANYL. RIGHT SHOULDER RED/PAINFUL TO PALP, NO DRNG NOTED. NEUTROPEINIC PRECAUTIONS MAINTAINED. REPORT GIVEN TO DAY RN.
[2020-04-21 16:23] LABS: Hematocrit 20.1 % (33.0-51.0)
--- NOTE | 2020-04-21 16:33 | NUR ---
Provided prayer and encouragement to Danuta. 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 She has a lot on her plate. I facilitated exploration of her flora and this seemed to provide some peace. We prayed larisather for healing. I will remain available.
[2020-04-22 05:39] LABS: Stool Occult Blood Guaiac 1 Neg (Neg)
[2020-04-22 07:08] LABS: Hematocrit 20.2 % (33.0-51.0); Hemoglobin 7.1 g/dL (11.5-16.0); Mean Corpuscular HGB 32.4 pg (26.0-34.0); Mean Corpuscular HGB Conc 35.1 g/dL (31.5-36.5); Mean Corpuscular Volume 92 fL (80-100); RDW Coefficient Variation 13.6 % (11.7-14.2); RDW Standard Deviation 45.5 fL (35.1-46.3); Red Blood Cell Count 2.19 M/mm3 (3.80-5.20); White Blood Cell Count 1.25 K/mm3 (4.00-11.30)
[2020-04-22 07:21] LABS: Albumin, Blood 2.8 g/dL (3.4-5.0); Anion Gap 7 mmol/L (6-16); Blood Urea Nitrogen 8 mg/dL (8-24); Bun/Creatinine Ratio 10.3 (12.0-20.0); CO2, Blood 25 mmol/L (21-32); Calcium, Blood 8.7 mg/dL (8.5-10.1); Chloride, Blood 108 mmol/L (98-108); Creatinine, Blood 0.78 mg/dL (0.40-1.00); Glomerular Filtration Rate >60 (60-); Glucose, Blood 83 mg/dL (70-99); Phosphorus, Blood 3.5 mg/dL (2.5-4.9); Potassium, Blood 3.8 mmol/L (3.5-5.5); Sodium, Blood 140 mmol/L (136-145)
[2020-04-22 07:23] LABS: Platelet Count 39 K/mm3 (150-400)
[2020-04-22 07:29] LABS: BAND PERCENT MAN 6 % (0-8); BASOPHILS PERCENT MAN 0 % (0-2); EOSINOPHILS PERCENT MAN 0 % (0-6); LYMPHOCYTES PERCENT MAN 16 % (21-46); MONOCYTES ABSOLUTE MAN 0.11 K/mm3 (0.16-1.47); MONOCYTES PERCENT MAN 9 % (4-13); NEUTROPHILS ABSOLUTE MAN 0.93 K/mm3 (1.96-9.15); SEG NEUTROPHILS PERCENT MAN 69 % (41-73); TOTAL CELLS COUNTED 100
--- NOTE | 2020-04-22 07:30 | NUR ---
ASSUMED CARE: PT SITTING UP IN BED, AWAKE, LOOKING AT IPAD, NO ACUTE NEEDS OR CONCERNS AT THIS TIME.
--- NOTE | 2020-04-22 18:14 | NUR ---
SHIFT SUMMARY: PT HAS BEEN RECIEVING IV ABX. DR PORTER STATED THAT SHE WAS HOLDING DC UNTIL PT HAD RESULTS BACK FROM BLOOD CULTURES SO TO BE SURE THAT ORDERS FOR ABX DONT NEED ADJUSTING. PT HAS DENIED FURTHER NEEDS OR CONCERNS THIS SHIFT.
--- NOTE | 2020-04-23 03:57 | NUR ---
SHIFT SUMMARY: NO SIGNIFICANT CHANGES THIS SHIFT. RT SHOULDER RED AND WARM TO TOUCH. PT REPORTS PAIN IS AT A TOLERABLE LEVEL W/O NEED FOR MEDICATIONS. IV ABX INFUSING PER EMAR. SALINE LOCKED BETWEEN DOSES. PT CHADWICK PO. DENIES N/V. INDEPENDENT IN ROOM AND VOIDING WELL. AWAITING BLOOD CULTURE RESULTS.
[2020-04-23 04:24] LABS: BASOPHILS ABSOLUTE AUTO 0.01 K/mm3 (0.00-0.23); BASOPHILS PERCENT AUTO 1 % (0-2); Hematocrit 21.4 % (33.0-51.0); Hemoglobin 7.4 g/dL (11.5-16.0); LYMPHOCYTES ABSOLUTE AUTO 0.31 K/mm3 (0.84-5.20); LYMPHOCYTES PERCENT AUTO 16 % (21-46); MONOCYTES ABSOLUTE AUTO 0.18 K/mm3 (0.16-1.47); MONOCYTES PERCENT AUTO 9 % (4-13); Mean Corpuscular HGB 32.3 pg (26.0-34.0); Mean Corpuscular HGB Conc 34.6 g/dL (31.5-36.5); Mean Corpuscular Volume 93 fL (80-100); Mean Platelet Volume 11.3 fL (9.1-12.4); RDW Coefficient Variation 13.4 % (11.7-14.2); Red Blood Cell Count 2.29 M/mm3 (3.80-5.20); White Blood Cell Count 1.97 K/mm3 (4.00-11.30)
[2020-04-23 04:27] LABS: EOSINOPHILS ABSOLUTE AUTO 0.02 K/mm3 (0.00-0.68); EOSINOPHILS PERCENT AUTO 1 % (0-6); IMMATURE GRAN ABSOLUTE AUTO 0.02 K/mm3 (0.00-0.10); IMMATURE GRAN PERCENT AUTO 1 % (0-1); NEUTROPHILS ABSOLUTE AUTO 1.43 K/mm3 (1.96-9.15); NEUTROPHILS PERCENT AUTO 73 % (41-73)
[2020-04-23 04:28] LABS: Platelet Count 36 K/mm3 (150-400)
--- NOTE | 2020-04-23 11:00 | NUR ---
RETURNS FROM CT W/ REPORT THAT HER IV INFILTRATED W/ CONTRAST. L ARM ASSESSED AND WARM BLANKET PLACED. DENIES PAIN TO AREA. AREA W/ TRACE EDEMA.
--- NOTE | 2020-04-23 19:53 | NUR ---
SHIFT SUMMARY PT LOST IV ACCESS TODAY AND UNABLE TO OBTAIN IV ACCESS. ABX ARE LATE DUE TO THIS. CARDIOLOGY CONSULTED AND NICOLE TOMORROW POST PLATELET INFUSION IN AM.
[2020-04-23 20:27] LABS: Influenza A, PCR Negative (NEGATIVE); Influenza B, PCR Negative (NEGATIVE); Resp Syncytial Virus, PCR Negative (NEGATIVE); SARS-Cov-2 (COVID-19) PCR, MMC Negative (NEGATIVE)
[2020-04-24 04:31] LABS: BASOPHILS PERCENT AUTO 0 % (0-2); Hemoglobin 7.1 g/dL (11.5-16.0); LYMPHOCYTES ABSOLUTE AUTO 0.42 K/mm3 (0.84-5.20); LYMPHOCYTES PERCENT AUTO 17 % (21-46); MONOCYTES ABSOLUTE AUTO 0.26 K/mm3 (0.16-1.47); MONOCYTES PERCENT AUTO 10 % (4-13); Mean Corpuscular HGB 31.4 pg (26.0-34.0); Mean Corpuscular HGB Conc 33.8 g/dL (31.5-36.5); Mean Corpuscular Volume 93 fL (80-100); Mean Platelet Volume 10.3 fL (9.1-12.4); RDW Coefficient Variation 13.4 % (11.7-14.2); RDW Standard Deviation 45.6 fL (35.1-46.3); Red Blood Cell Count 2.26 M/mm3 (3.80-5.20); White Blood Cell Count 2.53 K/mm3 (4.00-11.30)
[2020-04-24 04:38] LABS: EOSINOPHILS ABSOLUTE AUTO 0.03 K/mm3 (0.00-0.68); EOSINOPHILS PERCENT AUTO 1 % (0-6); IMMATURE GRAN ABSOLUTE AUTO 0.04 K/mm3 (0.00-0.10); IMMATURE GRAN PERCENT AUTO 2 % (0-1); NEUTROPHILS ABSOLUTE AUTO 1.78 K/mm3 (1.96-9.15); NEUTROPHILS PERCENT AUTO 70 % (41-73); Platelet Count 44 K/mm3 (150-400)
[2020-04-24 04:49] LABS: Anion Gap 4 mmol/L (6-16); Blood Urea Nitrogen 7 mg/dL (8-24); Bun/Creatinine Ratio 9.4 (12.0-20.0); CO2, Blood 28 mmol/L (21-32); Calcium, Blood 8.7 mg/dL (8.5-10.1); Chloride, Blood 107 mmol/L (98-108); Creatinine, Blood 0.75 mg/dL (0.40-1.00); Glomerular Filtration Rate >60 (60-); Glucose, Blood 88 mg/dL (70-99); Potassium, Blood 3.7 mmol/L (3.5-5.5); Sodium, Blood 139 mmol/L (136-145)
--- NOTE | 2020-04-24 07:19 | NUR ---
PT T-MAX 99.3, OTHER VSS. PT DENIED PAIN/N/V. 1 UNIT OF PLATELETS TRANSFUSED THIS AM, PT CHADWICK WELL, LUNGS CLEAR. PT INDEP IN ROOM, DENIED DIZZINESS WHEN UP. NEUTROPEINIC PRECAUTIONS MAINTAINED. DR SPENCER IN ROOM THIS AM FOR BEDSIDE NICOLE.
[2020-04-24] MEDS ORDERED: LEVOFLOXACIN750 MG PO (15:40)
--- NOTE | 2020-04-24 18:37 | NUR ---
DISCHARGED REVIEWED DC PAPERWORK W/PT. VERBALIZED UNDERSTANDING AND SIGNED DC PAPERWORK AT 4125. DC'D IV, CATHETER INTACT. REMOVED TELE AND RETURNED. FAXED PRESCRIPTIONS TO [facility]. PT LEFT UNIT IN WC TO RIDE AWAITING OUTSIDE.
== END 2020-04-24 17:17 | disposition home or self-care (01) | DRG 871 ==
LOC: ER 13:18 → MEDS 20:18 → SURS 21:03 → MEDS 21:07 → SURS 21:07 → MEDS 04-21 13:21 → SURS 04-24 17:17
PROVIDERS: Emergency Medicine; Family Medicine; Internal Medicine Cardiovascular Disease; Specialist; ADMIT Internal Medicine
DX: A41.51 Sepsis due to Escherichia coli [E. coli] (principal); D61.810 Antineoplastic chemotherapy induced pancytopenia; C49.11 Malignant neoplasm of connective and soft tissue of right upper limb, including shoulder; K61.0 Anal abscess; K92.2 Gastrointestinal hemorrhage, unspecified; D69.6 Thrombocytopenia, unspecified; F10.11 Alcohol abuse, in remission; F32.9 Major depressive disorder, single episode, unspecified; E66.9 Obesity, unspecified; G62.9 Polyneuropathy, unspecified; Z92.21 Personal history of antineoplastic chemotherapy; Z92.3 Personal history of irradiation; Z87.891 Personal history of nicotine dependence; G43.909 Migraine, unspecified, not intractable, without status migrainosus; E80.4 Gilbert syndrome; Z20.822 Contact with and (suspected) exposure to COVID-19; A60.00 Herpesviral infection of urogenital system, unspecified; I73.00 Raynaud's syndrome without gangrene; M79.2 Neuralgia and neuritis, unspecified; D70.1 Agranulocytosis secondary to cancer chemotherapy; R50.81 Fever presenting with conditions classified elsewhere
CPT/HCPCS: 0241U; 36415; 36430; 71045; 74177; 80048; 80053; 80069; 81001; 82272; 83605; 85014; 85018; 85025; 85610; 85730; 86850; 86900; 86901; 86923; 87040; 87077; 87086; 87186; 93308; 93312; 93321; 93325; 96365; 96374; 96375; 96376; 99152; 99285-25; A9270; C1751; C9113; G0378; J0692; J2250; J2405; J3010; J7030; J7050; P9016; P9035; P9040; Q9967

== ENCOUNTER 2020-06-13 11:16 | Inpatient (IN) | payer BC ==
[~2020-06-13] VITALS: Ht 175.3 cm; Wt 93.5 kg
[~2020-06-13 11:16] MED LIST changes: +LEVOFLOXACIN750 MG PO
--- NOTE | 2020-06-14 00:46 | NUR ---
2320 PT ELEVATED TEMP OF 100.0 VIA ORAL. TYLENOL GIVEN, ROOM TEMP TURNED DOWN. EXTRA BLANKETS REMOVED. PT IS HAVING CHILLS AT THIS TIME. 0045 PT DENIES CHILL, STILL WARM TO TOUCH. ORAL TEMP RE-ASSESSED WITH RESULT OF 101.2. LAST BLANKET REMOVED WITH ONLY THIN SHEET IN PLACE. ROOM TEMP TURNED ALL THE WAY DOWN. ICE PACK IN PLACE TO AXILLARY AND BEHIND NECK. PT ALSO REMOVED HER HAT AT THIS TIME. WILL CONTINUE TO MONITOR.
[2020-06-14 05:37] LABS: Hematocrit 23.5 % (33.0-51.0); Mean Corpuscular HGB 30.9 pg (26.0-34.0); RDW Coefficient Variation 12.3 % (11.7-14.2); RDW Standard Deviation 41.4 fL (35.1-46.3); Red Blood Cell Count 2.59 M/mm3 (3.80-5.20)
[2020-06-14 05:44] LABS: Mean Corpuscular Volume 91 fL (80-100)
[2020-06-14 05:45] LABS: BASOPHILS PERCENT AUTO 0 % (0-2); EOSINOPHILS ABSOLUTE AUTO 0.01 K/mm3 (0.00-0.68); EOSINOPHILS PERCENT AUTO 6 % (0-6); IMMATURE GRAN PERCENT AUTO 0 % (0-1); LYMPHOCYTES ABSOLUTE AUTO 0.05 K/mm3 (0.84-5.20); LYMPHOCYTES PERCENT AUTO 29 % (21-46); MONOCYTES ABSOLUTE AUTO 0.04 K/mm3 (0.16-1.47); MONOCYTES PERCENT AUTO 24 % (4-13); Mean Platelet Volume 11.9 fL (9.1-12.4); NEUTROPHILS ABSOLUTE AUTO 0.07 K/mm3 (1.96-9.15); NEUTROPHILS PERCENT AUTO 41 % (41-73)
[2020-06-14 05:47] LABS: White Blood Cell Count 0.17 K/mm3 (4.00-11.30)
[2020-06-14 05:48] LABS: Platelet Count 11 K/mm3 (150-400)
[2020-06-14 06:02] LABS: Anion Gap 9 mmol/L (6-16); Blood Urea Nitrogen 7 mg/dL (8-24); CO2, Blood 20 mmol/L (21-32); Calcium, Blood 8.2 mg/dL (8.5-10.1); Chloride, Blood 109 mmol/L (98-108); Glomerular Filtration Rate >60 (60-); Glucose, Blood 106 mg/dL (70-99); Potassium, Blood 3.6 mmol/L (3.5-5.5); Sodium, Blood 138 mmol/L (136-145)
--- NOTE | 2020-06-14 06:46 | NUR ---
AVIATION MAINTENANCE INSTRUCTOR SUMMARY PT ARRIVED TO UNIT AT 2103 VIA WC. A/O X4 WITH STEADY MOBILITY. PT DENIES DIZZINESS, SOB. PT HAS EXPERIENCES CHILLS AND FEVER ON AND OFF DURING NOC SHIFT. DRESSING TO RIGHT SHOULDER HAS BEEN CLEANED WITH WOUND SPRAY AND CHANGED. CURRENT DRESSING IS C.D.I. TEMPERATURE CHECKED AGAIN AT 0632 WITH READING OF 100.8. BLANKET WAS PLACED BACK ON PT AFTER PREVIOUS TEMP CHECK. THIS IS NOW PULLED OFF LEAVING ONLY A THIN SHEET IN PLACE. HOSPITALIST DR. DALAL NOTIFIED. IBUPROFEN 200-400MG Q8 PRN ORDERED TYLENOL DID NOT HELP. CURRENTLY BEING VERIFIED BY PHARMACY. CONTINIOUS NS RUNNING AT 100/HR PER EMAR. CALL LIGHT WITHIN REACH. WILL GIVE REPORT TO ONCOMING RN.
--- NOTE | 2020-06-14 18:03 | NUR ---
SHIFT SUMMARY PT AWAKE, RESTING QUIETLY DURING SHIFT REPORT. IVF'S INFUSING PER EMAR. DRSG TO R SHOULDER C/D/I. ADMITTED FOR NEUTROPENIC FEVER. MOTRIN GIVEN JUST PRIOR TO SHIFT REPORT AND LATER TYLENOL GIVEN PER DR BORJAS. ICE BAGS AND TYLENOL FINALLY EFFECTIVE. IV ABX CHANGED TO [place] WELL, AFTER DR BORJAS HERE TO ASSESS PT. PT C/O SORE THROAT EARLY IN THE SHIFT AND HAS CONTINUED TO C/O DIFFICULTY EATING OR SWALLOWING D/T PAIN; POSSIBLY R/T TO CHEMO TX. MYCELEX ORDERED AND GIVEN PER EMAR; PT REPORTING IT HELPFUL. R ARM SWELLING SOME THRU OUT THE DAY. DR BORJAS NOTIFIED. NEW ORDERS RECEIVED. US OF RUE COMPLETE. IVF'S DECREASED AND DONOVAN ELEVATED ON PILLOWS. PT STILL NOT ABLE TO SWALLOW W/O PAIN; EVEN ICE CREAM IS DIFFICULT. PT MEDICATED FOR C/O PAIN X1 THIS SHIFT. PT CONTINUES TO DENY NEEDS. OFFERED MULTIPLE CHOICES TO ENCOURAGE PO INTAKE. PT UNABLE TO TOLERATE D/T THROAT PAIN, AT THIS TIME. A&O, CALL LT IN REACH.
--- NOTE | 2020-06-14 20:46 | NUR ---
PT A/O X4. CONTINUES TO HAVE PAINFUL SORE THROAT. PT STATES PAIN WITH SWOLLOWING, OTHER THAN THAT IT IS TOLERABLE. RIGHT UPPER ARM CONTINUES TO BE EDEMATOUS, SOME REDNESS IN COLOR EXTENDING DOWN PASS RIGHT AC AREA. NURSE MEASURED THE WIDEST PART OF SWOLLEN AREA WITH A MEASUREMENT OF 36.5 CM. AREA MARKED ON ARM FOR NEXT MEASUREMENT. RIGHT ARM CURRENTLY ELEVATED ON PILLOWS. FAN PROVIDED TO KEEP TEMPERATURE DOWN. CALL LIGHT WITHIN REACH.
[2020-06-15 02:53] LABS: Hematocrit 21.3 % (33.0-51.0); Hemoglobin 7.4 g/dL (11.5-16.0); Mean Corpuscular HGB 30.6 pg (26.0-34.0); Mean Corpuscular HGB Conc 34.7 g/dL (31.5-36.5); Mean Corpuscular Volume 88 fL (80-100); Mean Platelet Volume 10.3 fL (9.1-12.4); RDW Coefficient Variation 12.1 % (11.7-14.2); RDW Standard Deviation 39.3 fL (35.1-46.3); Red Blood Cell Count 2.42 M/mm3 (3.80-5.20)
[2020-06-15 02:57] LABS: BASOPHILS PERCENT AUTO 0 % (0-2); EOSINOPHILS ABSOLUTE AUTO 0.01 K/mm3 (0.00-0.68); EOSINOPHILS PERCENT AUTO 2 % (0-6); IMMATURE GRAN ABSOLUTE AUTO 0.03 K/mm3 (0.00-0.10); IMMATURE GRAN PERCENT AUTO 7 % (0-1); LYMPHOCYTES ABSOLUTE AUTO 0.06 K/mm3 (0.84-5.20); LYMPHOCYTES PERCENT AUTO 15 % (21-46); MONOCYTES ABSOLUTE AUTO 0.05 K/mm3 (0.16-1.47); MONOCYTES PERCENT AUTO 12 % (4-13); NEUTROPHILS ABSOLUTE AUTO 0.26 K/mm3 (1.96-9.15); NEUTROPHILS PERCENT AUTO 64 % (41-73); Platelet Count 15 K/mm3 (150-400); White Blood Cell Count 0.41 K/mm3 (4.00-11.30)
[2020-06-15 03:06] LABS: Anion Gap 6 mmol/L (6-16); Blood Urea Nitrogen 7 mg/dL (8-24); Bun/Creatinine Ratio 6.7 (12.0-20.0); CO2, Blood 24 mmol/L (21-32); Calcium, Blood 8.2 mg/dL (8.5-10.1); Chloride, Blood 110 mmol/L (98-108); Creatinine, Blood 1.04 mg/dL (0.40-1.00); Glomerular Filtration Rate >60 (60-); Glucose, Blood 95 mg/dL (70-99); Potassium, Blood 3.3 mmol/L (3.5-5.5); Sodium, Blood 140 mmol/L (136-145)
[2020-06-15 03:07] LABS: Vancomycin, Trough 10.7 ug/mL (5.0-10.0)
[2020-06-15 03:15] LABS: BAND PERCENT MAN 13 % (0-8); BASOPHILS PERCENT MAN 0 % (0-2); EOSINOPHILS PERCENT MAN 1 % (0-6); LYMPHOCYTES ABSOLUTE MAN 0.07 K/mm3 (0.84-5.20); LYMPHOCYTES PERCENT MAN 18 % (21-46); METAMYELOCYTE ABSOLUTE MAN 0.03 K/mm3 (0.00-0.00); METAMYELOCYTE PERCENT MAN 8 % (0-0); MONOCYTES ABSOLUTE MAN 0.03 K/mm3 (0.16-1.47); MONOCYTES PERCENT MAN 8 % (4-13); NEUTROPHILS ABSOLUTE MAN 0.26 K/mm3 (1.96-9.15); SEG NEUTROPHILS PERCENT MAN 52 % (41-73); TOTAL CELLS COUNTED 100
--- NOTE | 2020-06-15 04:30 | NUR ---
STABLE HELPER SUMMARY PT A/O X4, INDEPENDENT IN ROOM. VERY LIGHT SLEEPER, SLEPT ON AND OFF TONIGHT. CONTINUES TO HAVE PAIN IN THROAT. MEDICATED FOR PAIN ONCE NOC SHIFT. PT HAS HAD NO FEVERS OVERNIGHT, DID EXPERIENCE A LITTLE BIT OF CHILLS TONIGHT. CALL LIGHT WITHIN REACH. PLEASANT AND COOPERATIVE.
--- NOTE | 2020-06-15 17:23 | NUR ---
SHIFT SUMMARY PT HAS IMPROVED SLIGHTLY, REMAINING AFEBRILE WITH SLIGHT IMPROVEMENT IN LABS. PT UP TO BENCH IN THIS AM WITH NOSE BLEED. ICE BAG GIVEN. DR BORJAS HERE THIS AM, PLACING NEW ORDERS. PT RECEIVED [address] BORJAS ALSO ORDERED LIDOCAINE SWISH AND SWALLOW FOR SORE THROAT PAIN. PT DID NOT FEEL THAT THE MYCELEX WAS WORKING. NORCO GIVEN FOR PAIN TODAY WELL, WHICH PT REPORTED HELPING. PT HAS BEEN ABLE TO EAT AND DRINK SOME FROM EACH MEAL TODAY, WHICH IS AN IMPROVEMENT. GRANIX ALSO ORDERED AND GIVEN PER EMAR. PT REFUSED K+ TABLETS, EVEN IF CRUSHED AND PLACED IN APPLESAUCE. R ARM REMAINS SWOLLEN AND ELEVATED ON PILLOW. DRSG TO R ARM CHANGED WELL. MINIMAL DRAINAGE ON GAUZE. REDNESS AND SWELLING CONTINUES AROUND SX SITE. IV ABX GIVEN PER EMAR. PT HAS BEEN INDEPENDENT IN AND TO [facility] [place]. ABLE TO MAKE NEEDS KNOWN. CALL LT IN REACH.
[2020-06-16 05:10] LABS: Hematocrit 21.2 % (33.0-51.0); Hemoglobin 7.2 g/dL (11.5-16.0); Mean Corpuscular HGB 30.3 pg (26.0-34.0); Mean Corpuscular Volume 89 fL (80-100); Mean Platelet Volume 10.5 fL (9.1-12.4); RDW Coefficient Variation 12.3 % (11.7-14.2); RDW Standard Deviation 39.9 fL (35.1-46.3); Red Blood Cell Count 2.38 M/mm3 (3.80-5.20); White Blood Cell Count 1.28 K/mm3 (4.00-11.30)
[2020-06-16 05:13] LABS: Platelet Count 35 K/mm3 (150-400)
[2020-06-16 05:30] LABS: Anion Gap 5 mmol/L (6-16); Blood Urea Nitrogen 7 mg/dL (8-24); Bun/Creatinine Ratio 7.2 (12.0-20.0); CO2, Blood 26 mmol/L (21-32); Calcium, Blood 8.4 mg/dL (8.5-10.1); Chloride, Blood 106 mmol/L (98-108); Creatinine, Blood 0.98 mg/dL (0.40-1.00); Glomerular Filtration Rate >60 (60-); Glucose, Blood 83 mg/dL (70-99); Potassium, Blood 3.1 mmol/L (3.5-5.5); Sodium, Blood 137 mmol/L (136-145)
[2020-06-16 05:41] LABS: BAND PERCENT MAN 8 % (0-8); BASOPHILS PERCENT MAN 0 % (0-2); EOSINOPHILS PERCENT MAN 0 % (0-6); LYMPHOCYTES ABSOLUTE MAN 0.15 K/mm3 (0.84-5.20); LYMPHOCYTES PERCENT MAN 12 % (21-46); MONOCYTES ABSOLUTE MAN 0.15 K/mm3 (0.16-1.47); MONOCYTES PERCENT MAN 12 % (4-13); NEUTROPHILS ABSOLUTE MAN 0.97 K/mm3 (1.96-9.15); SEG NEUTROPHILS PERCENT MAN 68 % (41-73); TOTAL CELLS COUNTED 50
--- NOTE | 2020-06-16 06:30 | NUR ---
SHIFT SUMMARY PATIENT ALERT AND ORIENTED. WAS MEDICATED TWICE PER EMAR FOR PAIN. PATIENT DENIES NAUSEA OR VOMITING. PATIENT WAS AFEBRILE OVERNIGHT, HIGHEST TEMP WAS 99.0. DRESSING ON SHOULDER IS CLEAN/DRY/AND INTACT. MEDIPORT PATENT AND INFUSING. BED IN LOWEST POSITION WITH WHEELS LOCKED. CALL LIGHT WITHIN REACH. REPORT GIVEN TO ONCOMING RN.
--- NOTE | 2020-06-16 16:45 | NUR ---
SUMMARY PT IS A/O X4, PLEASANT/COOPERATIVE AFFECT. UP IND IN ROOM. DX NEUTROPENIC FEVER, SHE HAS BEEN AFEBRILE T/O DAY. WBC CONTINUE LOW HOWEVER IMPROVED 1.28. S/P TUMOR REMOVAL DONOVAN/DELTOID AREA THAT BECAME INFECTED. @ THIS TIME WE ARE DOING WET-DRY DRSG CHANGES BID. R ARM CONTINUES EDEMATOUS w REDNESS UPPER ARM AREA. SHE HAS BEEN ELEVATING ON PILLOW. DR GEORGE IN TO TOO ASSESS, STOP NS @ 75 M/HR, ORDER TKO VIA [employer]. ORDER IV LASIX X1. IV ANTIBX CONTINUE. HAVE GIVEN IBUPROFEN & NORCO FOR PAIN RELIEF. PT STATE CONTINUING SORE THROAT HOWEVER IMPROVED, DECLINES XYLOCAINE. K+ 3.1 THIS AM, DR COOPER K-RIDER. PLT CONTINUE LOW HOWEVER IMPROVED AFTER INFUSION YESTERDAY. H&H 7.2/21.2, LAST CHEMO 3 WKS AGO. VSS.
--- NOTE | 2020-06-17 04:31 | NUR ---
SHIFT SUMMARY: VSS. AFEB. AAOX4. ABLE TO COMMUNICATE NEEDS. MED X 1 FOR R SHOULDER PAIN W/ GOOD EFFECT. CHADWICK DRESSING CHANGE WELL. WET TO DRY DRSG APPLIED PER ORDERS. SLOUGH COVERING 100% OF WOUND BED. SOUMYA WOUND TISSUE ERYTHEMATOUS AND INDURATED. CONT W/ BUE SWELLING, R > L. PT REPORTS INCREASED COUGHING. STATES COUGH IS OCCASIONALLY PRODUCTIVE. STATES THROAT FEELS MUCH BETTER- IS ABLE TO EAT AND DRINK WITHOUT PAIN. LSCTA. 02 98-99% ON RA. AFEB. NO ACUTE OVERNIGHT EVENTS. WCTM.
[2020-06-17 05:24] LABS: Hematocrit 20.6 % (33.0-51.0); Mean Corpuscular HGB 30.2 pg (26.0-34.0); Mean Corpuscular Volume 89 fL (80-100); Mean Platelet Volume 9.7 fL (9.1-12.4); RDW Coefficient Variation 12.5 % (11.7-14.2); RDW Standard Deviation 40.7 fL (35.1-46.3); Red Blood Cell Count 2.32 M/mm3 (3.80-5.20); White Blood Cell Count 2.17 K/mm3 (4.00-11.30)
[2020-06-17 05:28] LABS: Platelet Count 36 K/mm3 (150-400)
[2020-06-17 05:48] LABS: Albumin, Blood 2.3 g/dL (3.4-5.0); Anion Gap 7 mmol/L (6-16); Blood Urea Nitrogen 7 mg/dL (8-24); Bun/Creatinine Ratio 7.4 (12.0-20.0); CO2, Blood 27 mmol/L (21-32); Calcium, Blood 8.4 mg/dL (8.5-10.1); Chloride, Blood 105 mmol/L (98-108); Creatinine, Blood 0.94 mg/dL (0.40-1.00); Glomerular Filtration Rate >60 (60-); Glucose, Blood 84 mg/dL (70-99); Phosphorus, Blood 3.4 mg/dL (2.5-4.9); Sodium, Blood 139 mmol/L (136-145)
[2020-06-17 06:01] LABS: BAND PERCENT MAN 8 % (0-8); BASOPHILS PERCENT MAN 0 % (0-2); EOSINOPHILS ABSOLUTE MAN 0.02 K/mm3 (0.00-0.68); EOSINOPHILS PERCENT MAN 1 % (0-6); LYMPHOCYTES ABSOLUTE MAN 0.17 K/mm3 (0.84-5.20); LYMPHOCYTES PERCENT MAN 8 % (21-46); MONOCYTES ABSOLUTE MAN 0.17 K/mm3 (0.16-1.47); MONOCYTES PERCENT MAN 8 % (4-13); SEG NEUTROPHILS PERCENT MAN 75 % (41-73); TOTAL CELLS COUNTED 100
--- NOTE | 2020-06-17 06:44 | NUR ---
CALL TO HOSPITALIST / K+ 3.0 CALL PLACED AT 0625 AND AGAIN AT 0640 TO REPORT LOW K+. AWAITING RETURN CALL.
--- NOTE | 2020-06-17 14:09 | NUR ---
MEDIPORT NOT WORKING FOR BLOOD DRAWS SPOKE WITH DR GEORGE ABOUT PTS MEDIPORT NOT WORKING FOR BLOOD DRAWS, DR GEORGE REQUESTED THIS RN TO CONTACT PTS CANCER DOCTOR ABOUT ISSUE WITH MEDIPORT. PT PROVIDED CONTACT INFO FOR DR BETY KENNEDY AT [facility]. CALLED TO OFFICE AND SPOKE WITH DR WILSON NURSE AKASH AND SHE STATED THAT THEY ALLOW CATHFLO TO BE USED ON THIER MEDIPORTS WHEN THEY DONT DRAW. WILL RELAY INFO TO DR GEORGE.
[2020-06-17 15:19] LABS: Vancomycin, Trough 11.2 ug/mL (5.0-10.0)
--- NOTE | 2020-06-17 15:57 | NUR ---
SUMMARY PT IS A/O X4, PLEASANT/COOPERATIVE. DR BOSWELL IN THIS AM, STATE NOT READY FOR D/C TODAY, PT AGREE. WBC @ 2.17, NEUTROPENIC PRECAUTIONS CONTINUE. DR INCREASE IV ANTIBX ROCEPHIN TO 2000MG. IV VANCO CONTINUES. DR BERRY HAD HUMAN RESOURCES LEADER COMMUNICATE w PT'S ONCOLOGIST @ [facility] R/T USING CATHFLO TO OPEN MEDIPORT FOR BLOOD DRAWS, OK'D, ORDERS RECIEVED, HUMAN RESOURCES LEADER WILL ADMIN. K+ CONTINUES LOW @ 3, DR ORDER K-RIDER THIS AM. PLT & H&H CONTINUE LOW, WILL CONTINUE TO MX. WOUND CARE DONOVAN PROVIDED TODAY. SITE CONTINUE RED, WARM, EDEMATOUS. ORDER IV LASIX. NORCO GIVEN FOR PAIN DONOVAN X1 TODAY. VSS.
--- NOTE | 2020-06-17 17:54 | NUR ---
CATHFLO TO MEDIPORT SUCCESSFUL MEDIPORT DRAWS BLOOD BACK AND FLUSHES EASILY NOW
[2020-06-18 05:55] LABS: Anion Gap 6 mmol/L (6-16); Blood Urea Nitrogen 6 mg/dL (8-24); Bun/Creatinine Ratio 6.5 (12.0-20.0); CO2, Blood 30 mmol/L (21-32); Calcium, Blood 8.3 mg/dL (8.5-10.1); Chloride, Blood 106 mmol/L (98-108); Creatinine, Blood 0.92 mg/dL (0.40-1.00); Glomerular Filtration Rate >60 (60-); Glucose, Blood 99 mg/dL (70-99); Sodium, Blood 142 mmol/L (136-145)
--- NOTE | 2020-06-18 06:15 | NUR ---
SHIFT SUMMARY PT PLEASANT AND COOPERATIVE. MOSTLY RESTED IN BED THROUGHOUT THE NIGHT. SLEPT OFF AND ON. PT REPORTS PAIN TO R ARM BUT STATES THAT ITS "NOT BAD". ONLY RATING IT A 3-4/10. PREMEDICATED PT W/ 1 TAB NORCO FOR DRESSING CHANGE. WOUND TO R ARM CLEANED WITH WOUND CLEANSER AND REDRESSED W/ WET TO DRY DRESSING. YELLOW SLOUGH COVERING ENTIRE WOUND BED. PT DENIED NEEDING PAIN MEDICATION OTHERWISE. R ARM IS RED AND EDEMATOUS. SOME EDEMA NOTED TO LUE WELL BUT NOT SEVERE. PT REPORTS THAT THE REDNESS AND WARMTH TO RUE APPEARS WORSE TO HER. PT HAS BEEN AFEBRILE. VSS. METAPORT RUDI BLOOD WITH NO DIFFICULTY. WILL CONTINUE TO MONITOR.
[2020-06-18 06:17] LABS: Hemoglobin 6.9 g/dL (11.5-16.0); Mean Corpuscular HGB 30.5 pg (26.0-34.0); Mean Corpuscular HGB Conc 34.5 g/dL (31.5-36.5); Mean Corpuscular Volume 89 fL (80-100); RDW Coefficient Variation 12.6 % (11.7-14.2); RDW Standard Deviation 40.9 fL (35.1-46.3); Red Blood Cell Count 2.26 M/mm3 (3.80-5.20)
[2020-06-18 06:20] LABS: Platelet Count 38 K/mm3 (150-400)
--- NOTE | 2020-06-18 06:45 | NUR ---
CALL MADE OUT TO DR. DALAL FOR LAB VALUES. H/H - 6.9/20.0. PLT REMAIN CRITICALLY LOW AT 38 BUT UP FROM YESTERDAYS 36. POTASSIUM ALSO REMAINS AT 3.0 THIS AM. HAVE NOT RECIEVED A CALL BACK. WILL HAVE DAY SHIFT RN NOTIFY DAY SHIFT HOSPITALIST.
[2020-06-18 07:18] LABS: BAND PERCENT MAN 4 % (0-8); BASOPHILS PERCENT MAN 0 % (0-2); EOSINOPHILS PERCENT MAN 0 % (0-6); LYMPHOCYTES ABSOLUTE MAN 0.24 K/mm3 (0.84-5.20); LYMPHOCYTES PERCENT MAN 10 % (21-46); MONOCYTES ABSOLUTE MAN 0.16 K/mm3 (0.16-1.47); MONOCYTES PERCENT MAN 7 % (4-13); NEUTROPHILS ABSOLUTE MAN 1.99 K/mm3 (1.96-9.15); SEG NEUTROPHILS PERCENT MAN 79 % (41-73); TOTAL CELLS COUNTED 100
[2020-06-18 17:25] LABS: Influenza A, PCR NEGATIVE (NEGATIVE); Influenza B, PCR NEGATIVE (NEGATIVE); Resp Syncytial Virus, PCR NEGATIVE (NEGATIVE); SARS-Cov-2 (COVID-19) PCR, MMC NEGATIVE (NEGATIVE)
--- NOTE | 2020-06-18 17:27 | NUR ---
Offered prayer and encouragement to Danuta. She had a friend at bedside. She denied needs/pain, but did admit she was worried about her arm. Deidra responded well to encouragement and assurance of care/attention. She feels she is well cared-for. I will remain available.
--- NOTE | 2020-06-18 18:20 | NUR ---
SHIFT SUMMARY- PT IS A/O, PLESANT AND COOPERATIVE. SHE IS EATING AND DRINKING WELL. SHE IS INDEPENDENT IN THE ROOM. SHE REPORTED THAT HER ARM WAS NOT FEELING MUCH BETTER. CHANGED HER DRESSING TWICE THIS SHIFT. SHE RECIEVED A UNIT OF BLOOD THIS SHIFT AND TOLERATED WELL. SHE WENT FOR A CT WITH CONTRAST THIS EVENING. DR. STORY CONSULTED AND RECOMENDE DEBRIDMENT OF THE WOUND BED, HE WILL TOUCH BASE WITH DR. ARTHUR AT [facility]. SHE IS CURRENTLY IN IMAGING.
--- NOTE | 2020-06-18 22:36 | NUR ---
RECEIVED PHONE CALL FROM RONALD RN FROM [facility], PROVIDED INFO IN REGARDS TO PATIENT STATUS. SHE REPORTED THAT THEY DO NOT HAVE AN AVAILABLE BED AT THEIR FACILITY AT THIS TIME, [facility] WILL UPDATE WHEN BED IS AVAILABLE.
--- NOTE | 2020-06-19 04:31 | NUR ---
DEVELOPMENT TEAM LEAD SUMMARY NO ACUTE CHANGES NOTED TO PT THIS SHIFT. PT A&OX4, ABLE TO MAKE NEEDS KNOWN. PLEASANT AND COOPERATIVE TO CARE. PT MEDICATED FOR RUE PAIN PER EMAR. NO C/O CP, SOB, OR N&V. PT CONTINUES ON IV ABX, NO ASE NOTED. WOUND CARE PROVIDED TO DONOVAN WOUND, DRESSING CDI TO AA. PT CALM AND RESTED IN BED T/O SHIFT, BED AT LOWEST POSITION. CALL LIGHT WITHIN REACH.
[2020-06-19 06:04] LABS: Albumin, Blood 2.3 g/dL (3.4-5.0); Anion Gap 7 mmol/L (6-16); Blood Urea Nitrogen 5 mg/dL (8-24); Bun/Creatinine Ratio 5.1 (12.0-20.0); CO2, Blood 28 mmol/L (21-32); Calcium, Blood 8.3 mg/dL (8.5-10.1); Chloride, Blood 106 mmol/L (98-108); Creatinine, Blood 0.98 mg/dL (0.40-1.00); Glomerular Filtration Rate >60 (60-); Glucose, Blood 88 mg/dL (70-99); Phosphorus, Blood 4.1 mg/dL (2.5-4.9); Potassium, Blood 3.3 mmol/L (3.5-5.5); Sodium, Blood 141 mmol/L (136-145)
[2020-06-19 06:42] LABS: BASOPHILS ABSOLUTE AUTO 0.01 K/mm3 (0.00-0.23); BASOPHILS PERCENT AUTO 0 % (0-2); Hematocrit 22.5 % (33.0-51.0); Hemoglobin 7.7 g/dL (11.5-16.0); LYMPHOCYTES ABSOLUTE AUTO 0.23 K/mm3 (0.84-5.20); LYMPHOCYTES PERCENT AUTO 8 % (21-46); MONOCYTES ABSOLUTE AUTO 0.28 K/mm3 (0.16-1.47); MONOCYTES PERCENT AUTO 10 % (4-13); Mean Corpuscular HGB 30.1 pg (26.0-34.0); Mean Corpuscular HGB Conc 34.2 g/dL (31.5-36.5); Mean Corpuscular Volume 88 fL (80-100); Mean Platelet Volume 9.5 fL (9.1-12.4); RDW Coefficient Variation 12.7 % (11.7-14.2); RDW Standard Deviation 41.1 fL (35.1-46.3); Red Blood Cell Count 2.56 M/mm3 (3.80-5.20); White Blood Cell Count 2.84 K/mm3 (4.00-11.30)
--- NOTE | 2020-06-19 06:45 | NUR ---
PHONE CALL FROM [facility] RECEIVED PHONE CALL FROM [facility] STAFF, HE INFORMED THIS RN THAT THERE IS AN AVAILABLE ROOM AT THERE FACILITY, PT IS TO BE ASSIGNED IN 13K ROOM #28. REPORT TO BE GIVEN AT THIS NUMBER [id number] AT 0730 06/19/20.
[2020-06-19 06:51] LABS: EOSINOPHILS ABSOLUTE AUTO 0.01 K/mm3 (0.00-0.68); EOSINOPHILS PERCENT AUTO 0 % (0-6); IMMATURE GRAN ABSOLUTE AUTO 0.03 K/mm3 (0.00-0.10); IMMATURE GRAN PERCENT AUTO 1 % (0-1); NEUTROPHILS ABSOLUTE AUTO 2.28 K/mm3 (1.96-9.15); NEUTROPHILS PERCENT AUTO 80 % (41-73)
[2020-06-19 06:52] LABS: Platelet Count 43 K/mm3 (150-400)
--- NOTE | 2020-06-19 08:14 | NUR ---
REPORT CALLED TO OSCAR MCDANIELS RN. QUESTIONS/CONCERNS ANSWERED. THIS RN'S PHONE NUMBER LEFT WITH OSCAR IN CASE OF FURTHER QUESTIONS.
--- NOTE | 2020-06-19 09:12 | NUR ---
PT TRANSPORTED VIA AMBULANCE, CALL TO [facility] 13K TO INFORM OSCAR MILLER OF PT DEPARTURE PER HIS REQUEST.
== END 2020-06-19 09:12 | disposition short-term general hospital (02) | DRG 871 ==
LOC: ER 11:16 → MEDS 18:00
PROVIDERS: Internal Medicine; ADMIT Hospitalist
DX: A41.9 Sepsis, unspecified organism (principal); D61.810 Antineoplastic chemotherapy induced pancytopenia; L03.113 Cellulitis of right upper limb; C49.11 Malignant neoplasm of connective and soft tissue of right upper limb, including shoulder; E87.1 Hypo-osmolality and hyponatremia; F33.9 Major depressive disorder, recurrent, unspecified; R65.20 Severe sepsis without septic shock; D70.2 Other drug-induced agranulocytosis; R50.81 Fever presenting with conditions classified elsewhere; Z20.822 Contact with and (suspected) exposure to COVID-19; T45.1X5A Adverse effect of antineoplastic and immunosuppressive drugs, initial encounter; F41.1 Generalized anxiety disorder; R04.0 Epistaxis; G43.909 Migraine, unspecified, not intractable, without status migrainosus; R79.89 Other specified abnormal findings of blood chemistry; G62.9 Polyneuropathy, unspecified; J02.9 Acute pharyngitis, unspecified; K59.09 Other constipation; E87.6 Hypokalemia; E83.39 Other disorders of phosphorus metabolism; Z98.890 Other specified postprocedural states; Z88.8 Allergy status to other drugs, medicaments and biological substances; Z79.899 Other long term (current) drug therapy; Z87.891 Personal history of nicotine dependence
CPT/HCPCS: 0241U; 36415; 36430; 73201; 80048; 80069; 80202; 82607; 82728; 82746; 83540; 83550; 83605; 83735; 84100; 85025; 86850; 86900; 86901; 86923; 87040; 93971; 96361; 96365; 96366; 96367; 99285-25; A9270; J0295; J0696; J1447; J1642; J1940; J2543; J2997; J3370; J3480; J7030; J7050; P9016; P9037; Q9967

== ENCOUNTER → 2020-12-22 | Outpatient (CLI) | payer BC | LOC: LAB SHORT 14:03 → LAB 14:03 | DX: N39.0 Urinary tract infection, site not specified (principal) | CPT/HCPCS: 87077; 87086; 87186 ==

== ENCOUNTER → 2021-08-31 | Outpatient (CLI) | payer BC | END | disposition home or self-care (01) | LOC: LAB SHORT 13:06 | DX: N39.0 Urinary tract infection, site not specified (principal) | CPT/HCPCS: 87077; 87086; 87186 ==

== ENCOUNTER → 2021-09-15 | Outpatient (CLI) | payer BC | END | disposition home or self-care (01) | LOC: LAB 12:59 → LAB SHORT 12:59 | DX: N39.0 Urinary tract infection, site not specified (principal) | CPT/HCPCS: 87086 ==

== ENCOUNTER → 2021-10-12 | Outpatient (CLI) | payer BC | LOC: LAB 10:15 → LAB SHORT 10:15 | DX: N39.0 Urinary tract infection, site not specified (principal); R30.9 Painful micturition, unspecified | CPT/HCPCS: 87077; 87086; 87186 ==

== ENCOUNTER → 2021-12-03 | Outpatient (CLI) | payer BC | END | disposition home or self-care (01) | LOC: LAB SHORT 13:28 → LAB 13:28 | DX: N39.0 Urinary tract infection, site not specified (principal) | CPT/HCPCS: 87077; 87086; 87186 ==

== ENCOUNTER → 2021-12-21 | Outpatient (CLI) | payer BC | END | disposition home or self-care (01) | LOC: LAB 15:33 → LAB SHORT 15:33 | DX: N39.0 Urinary tract infection, site not specified (principal) | CPT/HCPCS: 87077; 87086; 87186 ==

== ENCOUNTER → 2022-02-26 | Outpatient (CLI) | payer BC | END | disposition home or self-care (01) | LOC: LAB SHORT 18:24 | DX: N39.0 Urinary tract infection, site not specified (principal) | CPT/HCPCS: 87077; 87086; 87186 ==

== ENCOUNTER → 2024-02-01 | Outpatient (CLI) | payer OTHER | LOC: LAB SHORT 08:26 → LAB 08:26 | DX: N39.0 Urinary tract infection, site not specified (principal) | CPT/HCPCS: 87077; 87086; 87186 ==

== ENCOUNTER → 2024-10-23 | Outpatient (CLI) | payer OTHER | END | disposition home or self-care (01) | LOC: LAB SHORT 17:54 → LAB 17:54 | DX: N39.0 Urinary tract infection, site not specified (principal) | CPT/HCPCS: 87077; 87086; 87186 ==